=== PATIENT | male | born 1935 | race Caucasian/White ===

== ENCOUNTER → 2019-02-12 | Outpatient (CLI) | payer OTHER, BC ==
--- NOTE | 2019-02-12 14:37 | 2DMMODE ---
[facility] [place] [address] 2 D/M-MODE ECHOCARDIOGRAM Name: RAYOMOISES W Room #: REG [facility]#: [id number] ������������� Admission: 02/12/19 ������������� Attend Phys: Toney Joshi, Discharge: ��� ������������� ��� Date of : 39 Date of Service: 02/12/19 1437 �� Report #: [id number] �������� ��������������������������������������������[id number] THIS REPORT FOR: //name// APPROVED REPORT Study performed: 02/12/2019 13:57:15 EXAM: Comprehensive 2D, Doppler, and color-flow Echocardiogram Patient Location: Out-Patient Status: routine BSA: 1.98 HR: 54 bpm BP: 150/92 mmHg Rhythm: NSR Other Information Study Quality: Good Indications CHF, Cardiomyopathy. 2D Dimensions RVDd: 34.96 mm IVSd: 10.40 (7-11mm) LVOT Diam: 21.19 (18-24mm) LVDd: 51.54 mm PWd: 10.01 (7-11mm) Ascending Ao: 36.20 (22-36mm) LVDs: 44.01 (25-40mm) Aortic Root: 37.34 mm Volumes Left Atrial Volume (Systole) Single Plane 4CH: 39.08 mL Single Plane 2CH: 40.24 mL LA ESV Index: 21.00 mL/m2 Aortic Valve AoV Peak Connor.: 1.19 m/s AO Peak Gr.: 5.65 mmHg LVOT Max P.54 mmHg LVOT Max V: 0.80 m/s ANEESH Vmax: 2.36 cm2 Mitral Valve E/A Ratio: 0.6 MV Decel. Time: 306.26 ms MV E Max Connor.: 0.57 m/s [facility] [address] [address] 2 D/M-MODE ECHOCARDIOGRAM Name: MOISES CADE Room #: [facility]#: [id number] ������������� Admission: 02/12/19 ������������� Attend Phys: Toney Joshi, Discharge: ��� ������������� ��� Date of : 39 Date of Service: 02/12/19 1437 �� Report #: [id number] �������� ��������������������������������������������[id number] MV A Connor.: 0.91 m/s MV PHT: 88.81 ms IVRT: 133.79 ms Pulmonary Valve PV Peak Connor.: 1.17 m/s PV Peak Gr.: 5.49 mmHg Pulmonary Vein P Vein S: 0.65 m/s P Vein A: 0.33 m/s P Vein D: 0.38 m/s P Vein A Dur.: 120.0 msec P Vein S/D Ratio: 1.71 Tricuspid Valve TR Peak Connor.: 2.02 m/s RAP Estimate: 5.00 mmHg TR Peak Gr.: 16.34 mmHg PA Pressure: 21.00 mmHg Left Ventricle The left ventricle is normal size. There is global hypokinesis of the left ventricle. There is normal left ventricular wall thickness. Left ventricular systolic function is mild to moderately decreased. LVEF is 45%. Mild diastolic dysfunction is present (impaired relaxation pattern). Right Ventricle The right ventricle is normal size. The right ventricular systolic function is normal. Atria The left atrium size is normal. The right atrium size is normal. Aortic Valve The aortic valve is normal in structure. Trace aortic regurgitation. There is no aortic valvular stenosis. Mitral Valve The mitral valve is normal in structure. Trace mitral regurgitation. No evidence of mitral valve stenosis. Tricuspid Valve The tricuspid valve is normal in structure. Trace tricuspid regurgitation. Estimated PAP 20-25mmHg. Pulmonic Valve The pulmonary valve is normal in structure. Trace pulmonic [address] [address] 2 D/M-MODE ECHOCARDIOGRAM Name: MOISES CADE Room #: REG [facility]#: [id number] ������������� Admission: 02/12/19 ������������� Attend Phys: Toney Joshi, Discharge: ��� ������������� ��� Date of : 39 Date of Service: 02/12/19 1437 �� Report #: [id number] �������� ��������������������������������������������[id number] regurgitation. Great Vessels Aortic root is borderline dilated. The ascending aorta is normal in size. IVC is normal in size and collapses >50% with inspiration. Pericardium There is no pericardial effusion. <Conclusion> LVEF is 45%. There is global hypokinesis of the left ventricle. Mild diastolic dysfunction is present (impaired relaxation pattern). There is no aortic valvular stenosis. Trace aortic regurgitation. Trace mitral regurgitation. Aortic root is borderline dilated. ��������������������������������������������� <ELECTRONICALLY SIGNED> ���������������������������������������� By: Toney Joshi MD, FACC ��������������������������������������������� 02/12/19 1437 [id number] Toney Jsohi MD, FACC /INF
== END ==
LOC: CV 10:16
DX: I42.0 Dilated cardiomyopathy (principal); I50.9 Heart failure, unspecified

== ENCOUNTER → 2020-02-11 | Outpatient (CLI) | payer OTHER, BC ==
--- NOTE | 2020-02-11 16:21 | 2DMMODE ---
[facility] [place] [address] 2 D/M-MODE ECHOCARDIOGRAM Name: MOISES CADE Room #: REG [facility]#: [id number] Admission: 02/11/20 Attend Phys: Codie Hatch MD, Discharge: Date of : 39 Report #: [id number] THIS REPORT FOR: cc: Ruperto Ha MD, David A. MD Lundgren, Craig H. MD [facility] ~ APPROVED REPORT Study performed: 02/11/2020 13:11:48 EXAM: Comprehensive 2D, Doppler, and color-flow Echocardiogram Patient Location: Out-Patient Status: routine BSA: 1.95 HR: 55 bpm BP: 114/68 mmHg Rhythm: NSR Other Information Study Quality: Adequate Indications Congestive Heart Failure Cardiomyopathy 2D Dimensions RVDd: 35.02 mm IVSd: 9.79 (7-11mm) LVOT Diam: 22.59 (18-24mm) LVDd: 50.34 mm PWd: 9.84 (7-11mm) Ascending Ao: 38.93 (22-36mm) LVDs: 41.15 (25-40mm) Aortic Root: 36.15 mm Volumes Left Atrial Volume (Systole) Single Plane 4CH: 52.25 mL Single Plane 2CH: 56.15 mL LA ESV Index: 29.00 mL/m2 Aortic Valve AoV Peak Connor.: 1.03 m/s AO Peak Gr.: 4.23 mmHg LVOT Max P.93 mmHg LVOT Max V: 0.69 m/s ANEESH Vmax: 2.70 cm2 [facility] [address] [place] [address] 2 D/M-MODE ECHOCARDIOGRAM Name: MOISES CADE Room #: REG [facility]#: [id number] Admission: 02/11/20 Attend Phys: Codie Hatch, Discharge: Date of : 39 Report #: [id number] Mitral Valve MV Decel. Time: 152.48 ms MV E Max Connor.: 0.98 m/s IVRT: 173.01 ms Pulmonary Valve PV Peak Connor.: 1.02 m/s PV Peak Gr.: 4.13 mmHg Pulmonary Vein P Vein S: 0.45 m/s P Vein D: 0.30 m/s P Vein S/D Ratio: 1.50 Tricuspid Valve RAP Estimate: 5.00 mmHg Left Ventricle The left ventricle is normal size. There is global hypokinesis of the left ventricle. There is normal left ventricular wall thickness. Left ventricular systolic function is moderately decreased. LVEF is 40-45%. Mild diastolic dysfunction Right Ventricle The right ventricle is normal size. The right ventricular systolic function is normal. Atria The left atrium size is normal. The right atrium size is normal. Aortic Valve The aortic valve is normal in structure. Trace aortic regurgitation. There is no aortic valvular stenosis. Mitral Valve The mitral valve is normal in structure. Mild mitral regurgitation. Tricuspid Valve The tricuspid valve is normal in structure. There is no tricuspid valve regurgitation noted. Unable to assess PA pressure. Pulmonic Valve The pulmonary valve is normal in structure. Trace pulmonic regurgitation. [facility] [address] [place] [address] 2 D/M-MODE ECHOCARDIOGRAM Name: MOISES CADE Room #: REG [facility]#: [id number] Admission: 02/11/20 Attend Phys: Codie Hatch, Discharge: Date of : 39 Report #: [id number] Great Vessels The aortic root is normal in size. The ascending aorta is mildly dilated (3.9cm). IVC is normal in size and collapses >50% with inspiration. Pericardium There is no pericardial effusion. <Conclusion> Left ventricular systolic function is moderately decreased. There is global hypokinesis of the left ventricle. LVEF is 40-45%. Mild diastolic dysfunction The aortic valve is normal in structure. Trace aortic regurgitation, no stenosis. The mitral valve is normal in structure. Mild mitral regurgitation. The ascending aorta is mildly dilated (3.9cm). There is no pericardial effusion. <ELECTRONICALLY SIGNED> By: Ricky De La Cruz MD, [facility] 02/11/20 1619 1619 1619 Ricky De La Cruz MD, FACC /INF
== END ==
LOC: CV 02-03 13:16
DX: I34.0 Nonrheumatic mitral (valve) insufficiency (principal); I42.0 Dilated cardiomyopathy; I48.0 Paroxysmal atrial fibrillation; I11.0 Hypertensive heart disease with heart failure; I50.9 Heart failure, unspecified; I42.9 Cardiomyopathy, unspecified

== ENCOUNTER → 2020-03-02 | Outpatient (CLI) | payer OTHER, BC | LOC: NUC 08:15 | PROVIDERS: ATTEND Internal Medicine | DX: I42.0 Dilated cardiomyopathy (principal); I44.0 Atrioventricular block, first degree; R00.1 Bradycardia, unspecified ==